=== PATIENT | female | born 1950 | race Caucasian/White ===

== ENCOUNTER → 2018-11-03 | Outpatient (CLI) | payer MEDICARE, BC, OTHER ==
[~2018-11-03] MED LIST: ASPI-630 PO; ATOR20TA PO; DOXY100C2 PO; EXEM25TA2 PO; IOHEXOL 300 MG/ML 100ML VIAL. IV ONE; IRBE150T PO; LEVO75TA5 PO; METF500T16 PO; SERT25TA PO
--- NOTE | 2018-11-04 15:44 | KCIC ---
Examination: CT CHEST W/CONTRAST History: Chronic cough, left breast and uterine cancer. Patient therapy for left breast cancers reported. Palpable abnormality involving the clavicle. Comparison/Correlation: None Findings: Axial images of the chest were obtained following IV contrast. Sagittal and coronal reformatted images were provided. Marker was placed at the left anterior base of the neck. The site for this marker was placed corresponds to the distal left sternocleidomastoid muscle images greater in size as compared to the right. Bilateral breast implants are noted. No significant breast tissue delineated. Correlate with mastectomy history. Right axillary surgical clips are present. Diffuse emphysematous involvement of the lung correia is noted. Scarring is noted at the left mid thoracic level anterior subpleural aspect and extends to the lower lung field region. No pleural or pericardial effusion. No pulmonary nodule or mass. No enlarged thoracic lymph nodes. Left parapelvic cysts are noted. Right parapelvic cysts or possibly mild right hydronephrosis is evident. Correlate with prior exams if available. Bony structures are unremarkable. Moderate quantity of stool within the visualized colon noted. Impression: No mass or enlarged lymph nodes. Mild hypertrophy of the distal left sternocleidomastoid muscle as compared to the right sternocleidomastoid muscle. No suspicious finding at the site of marker placement. PQRS Compliance Statement: One or more of the following individualized dose reduction techniques were utilized for this examination: 1. Automated exposure control 2. Adjustment of the mA and/or kV according to patient size 3. Use of iterative reconstruction technique Electronically signed by: Melvin Garcia MD (11/04/2018 3:41 PM) [id number]
== END | disposition home or self-care (01) ==
LOC: KCIC CT 11:56
PROVIDERS: ATTEND Nurse Practitioner Family
DX: J98.4 Other disorders of lung (principal); J43.9 Emphysema, unspecified; N94.89 Other specified conditions associated with female genital organs and menstrual cycle; M62.89 Other specified disorders of muscle; M95.8 Other specified acquired deformities of musculoskeletal system; Z86.000 Personal history of in-situ neoplasm of breast; Z98.82 Breast implant status; Z85.42 Personal history of malignant neoplasm of other parts of uterus; Z85.3 Personal history of malignant neoplasm of breast
CPT/HCPCS: 71260; Q9967